=== PATIENT | female | born 1980 | race Caucasian/White ===

== ENCOUNTER → 2016-11-10 | Outpatient (REF) | payer BC ==
[~2016-11-10] MED LIST: ACET50TA PO; DOCU10CA PO; IBUP80TA PO; PRENTAB55 PO
== END ==
LOC: M LAB REF 17:24
PROVIDERS: ATTEND Specialist
DX: Z12.4 Encounter for screening for malignant neoplasm of cervix (principal)

== ENCOUNTER → 2022-06-16 | Outpatient (CLI) | payer OTHER ==
[~2022-06-16] MED LIST changes: -ACET50TA PO; +MAPA500T2 PO
== END ==
LOC: M WHC 12:47
PROVIDERS: ATTEND Family Medicine
DX: Z13.9 Encounter for screening, unspecified (principal); R14.0 Abdominal distension (gaseous)

== ENCOUNTER → 2022-06-30 | Outpatient (CLI) | payer OTHER | LOC: M RAD 08:52 | PROVIDERS: ATTEND Family Medicine | DX: R14.0 Abdominal distension (gaseous) (principal) ==

== ENCOUNTER → 2022-10-11 | Outpatient (REF) | payer OTHER | LOC: M SFHCWAGY 15:29 | PROVIDERS: ATTEND Nurse Practitioner Family | DX: Z12.4 Encounter for screening for malignant neoplasm of cervix (principal) ==

== ENCOUNTER → 2023-08-23 | Outpatient (CLI) | payer OTHER ==
[2023-08-23 15:42] LABS: BASO # 0.1 10^3/uL (0.0-0.2); BASO % 1.1 % (0.0-1.0); EOS # 0.2 10^3/uL (0.0-0.5); EOS % 2.7 % (0.0-3.0); HEMATOCRIT 34.8 % (36.0-47.0); HEMOGLOBIN 11.9 g/dl (12.0-15.5); LYMPH # 2.2 10^3/uL (1.5-5.0); MEAN CORPUSCULAR HEMOGLOBIN 30.9 pg (27.0-33.0); MEAN CORPUSCULAR HGB CONC 34.2 g/dl (32.0-36.5); MEAN CORPUSCULAR VOLUME 90.4 fl (80.0-96.0); MONO # 0.5 10^3/uL (0.0-0.8); MONO % 7.6 % (2.0-8.0); NEUTROPHILS # 3.6 10^3/uL (1.5-8.5); NEUTROPHILS % 55.4 % (36.0-66.0); PLATELET COUNT, AUTOMATED 289 10^3/uL (150-450); RED BLOOD COUNT 3.85 10^6/uL (4.00-5.40); WHITE BLOOD COUNT 6.6 10^3/uL (4.0-10.0)
[2023-08-23 16:08] LABS: ALKALINE PHOSPHATASE 69 U/L (46-116); ALT/SGPT 18 U/L (7.0-40); AST/SGOT 14 U/L (<34); BILIRUBIN,TOTAL 0.4 MG/DL (0.3-1.2); BLOOD UREA NITROGEN 13 MG/DL (9-23); CALCIUM LEVEL 9.1 MG/DL (8.5-10.1); CARBON DIOXIDE LEVEL 30 MMOL/L (20-31); CHLORIDE LEVEL 106 MMOL/L (98-107); CHOLESTEROL LEVEL 171 MG/DL (<200); CHOLESTEROL RISK RATIO 3.35 (<5); CREATININE FOR GFR 0.68 MG/DL (0.55-1.30); FERRITIN 20.7 NG/ML (7.3-270.7); GLOMERULAR FILTRATION RATE > 60.0 (>58); GLUCOSE, FASTING 88 MG/DL (60-100); IRON (FE) 70 UG/DL (50-170); LDL CHOLESTEROL 99.2 MG/DL (<100); PERCENT SATURATION 24.1 % (13.2-45.0); POTASSIUM SERUM 4.3 MMOL/L (3.5-5.1); SODIUM LEVEL 141 MMOL/L (136-145); TOTAL IRON BINDING CAPACITY 290 UG/DL (250-425); TOTAL PROTEIN 6.8 G/DL (5.7-8.2); TRIGLYCERIDES LEVEL 104 MG/DL (<150)
[2023-08-23 16:33] LABS: HIV 1&2 SCREEN NEGATIVE (NEGATIVE)
[2023-08-23 16:41] LABS: HEPATITIS C VIRUS ABY INDEX < 0.02 INDEX (<0.8)
== END ==
LOC: M PLALAB 12:32
PROVIDERS: ATTEND Student in an Organized Health Care Education/Training Program
DX: Z76.89 Persons encountering health services in other specified circumstances (principal)